=== PATIENT | male | born 1965 | race Caucasian/White ===

== ENCOUNTER 2024-04-09 10:15 | Outpatient (CLI) | payer OTHER, SELFPAY ==
--- NOTE | 2024-04-09 11:36 | W.ANESCHARGE ---
Anesthesia Charges Start Date/Time Anesthesia Start Date: 04/09/24 Anesthesia Start Time: 11:08 Stop Date/Time Anesthesia Stop Date: 04/09/24 Anesthesia Stop Time: 11:35 Coding CPT Codes CPT Codes: ERASMO [place] INTST NDSC NOS - 62142 ([id number]) P2 - PATIENT W/MILD SYST DISEASE, QX - TRAVELING SALES EXECUTIVE SVC W/ MD MED DIRECTION, QK - HYDRODYNAMICS PROFESSOR 2-4 CNCRNT ANEValencia PROC
--- NOTE | 2024-04-09 11:56 | W.ANESCHARGE ---
Anesthesia Charges Start Date/Time Anesthesia Start Date: 04/09/24 Anesthesia Start Time: 11:08 Stop Date/Time Anesthesia Stop Date: 04/09/24 Anesthesia Stop Time: 11:35 Coding CPT Codes CPT Codes: ERASMO LWR INTST NDSC NOS - 40269 ([id number]) P2 - PATIENT W/MILD SYST DISEASE, QK - VAN DRIVER HELPER 2-4 CNCRNT ANES PROC, QX - OFFICE EQUIPMENT TECHNICIAN SVC W/ MD MED DIRECTION
== END 2024-04-09 10:16 | disposition home or self-care (01) ==
LOC: OP CLINIC 10:15
PROVIDERS: PCP Internal Medicine; Visit Provider Surgery
DX: Z12.11 Encounter for screening for malignant neoplasm of colon (principal); D12.7 Benign neoplasm of rectosigmoid junction; Z86.0100 Personal history of colon polyps, unspecified
CPT/HCPCS: 00811; 45385; 88305; J2704

== ENCOUNTER 2024-04-23 21:05 | Emergency (ER) | payer OTHER, SELFPAY ==
[2024-04-23] VITALS (8 sets, daily range): BP systolic 135–142; BP diastolic 82–103; PULSE 67–79; RESP 12–20; TEMP 36.8; O2SAT 92–99; BMI 33.4
--- OUTSIDE RECORDS SUMMARY | 2024-04-23 21:07 | XMS_ITS | Clinical Summary ---
Author Organization [employer] [facility] Address [address] [place] [address] Care Team Providers Care Bank Vault Custodian Name Role Phone Nessa Guerra DO Primary Care Provider [phone] Allergies Active Allergy Reactions Criticality Noted Date Comments Sulfa (Sulfonamide Antibiotics) Rash 04/07 Medications lansoprazole (PREVACID) 15 mg capsule Take 1 Capsule (15 mg) by mouth once daily before a meal. Taking as needed 0 04/28/2022 Active Active Problems No known active problems Encounters Date Type Department Care Team Description 04/09/2024 Orders Only [facility] Scanner 1 scan: (1-Ord) [facility] 04/09/2024 Orders Only [facility] Scanner 1 scan: (1-Ord) [facility] 04/09/2024 Orders Only [facility] Scanner 1 scan: (1-Ord) [place] from Last 3 Months Immunizations Immunization Administration Dates Next Due Influenza, IIV4 10/21/2021, 9,11/28/2017,11/22/19 17 Influenza, IIV4 (=>6mos) MDV 11/18/2019 Influenza,CCIIV4 PRESERV FREE 01/14/2023 Tdap 09/22/2017 Zoster (Shingrix-RZV, recombinant) 04/19/2023, Family History Medical History Relation Name Comments Hypertension Mother Relation Name Status Comments Mother Alive Social History Tobacco Use Types Packs/Day Years Used Date Smoking Tobacco: Never Passive Smoke Exposure: Past Smokeless Tobacco: Never Tobacco Cessation:Counseling Given: Yes Alcohol Use Standard Drinks/Week Comments Yes 7 (1 standard drink = 0.6 oz pur e alcohol) 1 per day PHQ-2 Answer Date Recorded PHQ-2 TOTAL SCORE 0 07/14/2023 Social Connections Answer Date Recorded Do you often feel lonely or isolated from those around you? 0 07/06/2023 Alcohol Use Answer Date Recorded How often do you have a drink containing alcohol ? 4 04/28/2022 How many drinks containing a lcohol do you have on a typical day when you are drinking? 0 04/28/2022 How often do you have five or more drinks on one occasion? 0 04/28/2022 Financial Resource Strain Answer Date R ecorded Difficulty of Paying Living Expenses 3 07/06/2023 Difficulty of Paying Living Expenses Not on file 07/06/2023 Food Insecurity Answer Date Recorded Do you worry your food will run out before you are able to buy more? 1 07/06/2023 Transportation Needs Answer Date Record ed Does lack of transportation keep you from medica l appointments? 1 07/06/2023 Does lack of transportation keep you from work, meetings or getting things that you need? 1 07/06/2023 Housing Stability Answer Date Recorded What is your housing situation today? 1 07/06/2023 Utilities Answer Date Recorded Do you have trouble paying f or utilities (for example, heat, electricity, water, phone)? 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 MAT ROLLER Gender Identity Not on file Sexual Orientation Not on file Obstetrics History Last Filed Vital Signs Vital Sign Reading Time Taken Comments Blood Pressure 123/81 07/14/2023 8:08 AM CDT Pulse 69 07/14/2023 8:08 AM CDT Temperature - - Respiratory Rate - - Oxygen Saturation 99% 07/14/2023 8:08 AM CDT Inhaled Oxygen Concentration - - Weight 112 kg (246 lb 14.4 oz) 07/14/2023 8:08 A M CDT Height 186.9 cm (6' 1.58) 07/14/2023 8:08 AM CD T Body Mass Index 32.06 07/14/2023 8:08 AM CDT Plan of Treatment Upcoming Encounters Date Type Department Care Team (Late st Contact Info) Description 05/02/2024 9:45 AM CDT Office Visit [facility] [address] [place] [address] TremayneNessa navarrete, [address] [facility] [address] Health Maintenance Due Date Last Done Comments Pneumococcal series for age 50+ (1 of 1 - PCV) 2016 COVID-19 vaccine series ( season) 2023 01/14/2023, 10/21/2021, 06/11/2021, Additional history exists Influenza Vaccine (#1) 2023 , 10/21/2021, 11/18/2019, Additional history exists BMI (ht and wt on same day) for age 18+ 07/13/2024 07/14/2023, 04/28/2022 Depression screening for age 12+ 07/13/2024 07/14/19 24, 04/28/2022 Tetanus booster 09/23/2027 09/22/2017 Lipids for age 45-75 07/13/2028 07/14/2023, 04/29/19 Colonoscopy through age 75 04/09/203404/09, 04/09/2024, 04/09/2024, Additional history exists Tdap Completed 09/22/2017 HIV for age 15-65 Completed 04/28/2022 Hepatitis C screening for ag e 18-79 Completed 04/28/2022 Zoster (shingles) series for age 50+ Completed 04/19/2023, 01/14/2023 Procedures Procedure Name Priority Date/Time Associated Diagnosis Comments SCAN-COLONOSCOPY 04/09/2024 12:0 0 AM MAT ROLLER SCAN-COLONOSCOPY 04/09/2024 12:0 0 AM MAT ROLLER SCAN-COLONOSCOPY 04/09/2024 12:0 0 AM MAT ROLLER LIPID PANEL W REFLEX MEASURED LDL Routine 07/14/2023 9:12 AM CDT Lipid screening LC HIV-1/O/2, 4TH GENERATION Routine 04/28/2022 9:05 AM CDT Screening for HIV (human immunodeficiency virus) LC HCV ANTIBODY RFX TO QUANT PCR Routine 04/28/2022 9:05 AM CDT Need for hepatitis C screening test from Last 3 Months or Most Recently Relevant to Health Maintenance Results * SCAN-COLONOSCOPY (04/09/2024 12:00 AM MAT ROLLER) us Scanner OTHER Final Result * SCAN-COLONOSCOPY (04/09/2024 12:00 AM MAT ROLLER) us Scanner OTHER Final Result * SCAN-COLONOSCOPY (04/09/2024 12:00 AM MAT ROLLER) us Scanner OTHER Final Result * (ABNORMAL) LIPID PANEL W REFLEX MEASURED LDL (07/14/2023 9:12 AM CDT) CHOLESTEROL,TOTAL 236(H) 100 - 199 mg/dL 07/14/2023 7:34 PM CDT [facility] Comment: Cholesterol, Total Reference Ranges Desirable <200 mg/dL Borderline 200-239 mg/dL High >=240 mg/dL TRIGLYCERIDES 188(H) <150 mg/dL 07/14/2023 7:34 PM CDT [facility] HDL CHOLESTEROL 35(L) >40 mg/dL 7:34 PM CDT [facility] NON-HDL CHOLESTEROL 201(H) <145 mg/dl 07/14/2023 7:34 PM CDT [facility] CHOL/HDL RATIO 6.74(H) <4.50 07/14/2023 7:34 PM CDT [facility] LDL CHOLESTEROL 163(H) <=130 mg/dL 07/14/2023 7:34 PM CDT [facility] VLDL CHOLESTEROL 38(H) <=30 mg/dL 07/14/2023 7:34 PM CDT [facility] PROVIDER ORDERED STATUS RANDOM 07/14/2023 7:34 PM CDT [facility] Blood BLOOD SPECIMEN / Unknown Venipuncture / Unknown 07/14/2023 9:12 AM CDT 07/14/2023 9:13 AM CDT [facility] Final Result [facility] [address] [place] [address], [place] * LC HCV ANTIBODY RFX TO QUANT PCR (04/28/2022 9:05 AM CDT) HCV Ab Non Reactive Non Reactive 04/30/2022 12:07 PM CDT [facility] ([facility]) Blood BLOOD SPECIMEN / Unknown Venipuncture / Unknown 04/28/2022 9:05 AM CDT 04/28/2022 9:09 AM CDT Narrative [facility] ([facility]) - 04/30/2022 12:07 PM CDT Performed at: [address] [place] [id number] Crew Boat Operator: Cornelius Zapata MD, Phone: [phone] [facility] LABORATORY Final Result Performing Organization Address City/[facility]/ZIP Co de Phone Number [facility] ([facility]) [address] [place] [id number], * LC HIV-1/O/2, 4TH GENERATION (04/28/2022 9:05 AM CDT) HIV Scr 4th Gen Non Reactive Non Reactive 04/30/2022 9:09 AM CDT [facility] ([facility]) Comment: HIV Negative HIV-1/HIV-2 antibodies and HIV-1 p24 antigen were NOT detected. There is no laboratory evidence of HIV infection. Blood BLOOD SPECIMEN / Unknown Venipuncture / Unknown 04/28/2022 9:05 AM CDT 04/28/2022 9:09 AM CDT Narrative [facility] ([facility]) - 04/30/2022 9:09 AM CDT Performed at: [address] [id number] Crew Boat Operator: Cornelius Zapata MD, Phone: [phone] us Nessa Guerra DO LABORATORY Final Result [facility] ([facility]) [address] [place] [address], from Last 3 Months or Most Recently Relevant to Health Maintenance Insurance [facility] [place] [address] Care Teams Bank Vault Custodian Relationship Specialty Start Date End Date Nessa Guerra DO [address] [place] [address] PCP - General Family Practice 04/28/22
--- OUTSIDE RECORDS SUMMARY | 2024-04-23 21:07 | XMS_ITS | Patient Health Record ---
Author Organization [facility] Address [address] [place] [address] Care Team Providers Care Natural Resources Instructor Name Role Phone Sallie Stevan GRUBER Primary Care Provider Shannan Lozano Unavailable [phone] Allergies Allergen (clinical drug ingredient) Drug/Non Drug Allergy documented on EMR Reaction Allergy Type Onset Date Status Sulfa itchy rash Drug Allergy Active Reason For Referral No Information Immunizations Vaccine Route Administration Date Status Comme nts Influenza, quad[place], [address] split virus IM Intramuscular 01/29/2016 Administered Plan Of Treatment No Information Insurance Providers Payer Name Payer Address Payer Phone Subscriber Number Group Number Insured Name Patient Relationship to Insured Coverage Start Date Coverage End Date [facility] [address] [address] [place] [address] [id number] Denise Bates Spouse - patient is the spouse of the insured Medical (General) History Medical History History ICD Code hemorrhoids GERD Surgical History Surgery Date(Month/Year) Colonoscopy - [facility], Dr Masterson; 5 y repe at 11/2013 Hospitalization History Reason Date(Month/Year) croup as child
--- NOTE | 2024-04-23 21:25 | ED.CHESTPAIN ---
HPI - Chest Pain General Time Seen by Provider: 21:26 Date Seen: 04/23/24 Chief Complaint: Chest Pain Stated Complaint: Chest pain, blood pressure 153/98 Time Seen by Provider: 04/23/24 21:25 Source: patient, family and RN notes reviewed Mode of arrival: ambulatory Limitations: no limitations History of Present Illness HPI narrative: Vince is a very pleasant 58-year-old male with history of borderline hypertension, unknown lipids, nonsmoker who comes to the emergency room with his for evaluation of chest pain. Patient notes the onset of some left anterior chest pain yesterday after workup. He and his had done a 26 mile bike ride 3 days ago with no problems at all. After having experience the chest discomfort grade did take an aspirin. He notes that the pain has been coming and going over the last 2 days. It does radiate into his left hand but not into his back. He is not short of breath and denies worsening symptoms with activity today. He does note that he feels ?off?. No nausea vomiting. He notes that he has been burping a lot and attributes all of his symptoms to reflux. He did take a PPI today and some Tums. Currently he has pain that is coming and going rating it a 1 to 2/10. To did have viral illness with the rest of the family recently but no lingering affects. He had tested negative for COVID at that time. No unusual lower extremity edema calf tenderness or history of DVT. Related Data Home Medications ?Medication ?Instructions ?Recorded ?Confirmed lansoprazole 30 mg capsule,delayed 30 mg PO QDAY PRN 12/12/21 04/23/24 release (Prevacid) Allergies Allergy/AdvReac Type Severity Reaction Status Date / Time Sulfa (Sulfonamide Allergy Intermediate Hives Verified 04/23/24 21:15 Antibiotics) Review of Systems Status of ROS Reports: 10 or more systems reviewed and unremarkable except as noted in History and below Const Denies: fever, chills or fatigue Eyes Denies: change in vision ENMT Denies: throat pain, neck pain, throat swelling or nasal congestion Cardio Reports: chest pain; Denies: palpitations, edema, swelling of feet/ankles, lightheadedness or shortness of breath with exertion Resp Denies: shortness of breath or cough GI Denies: abdominal pain, nausea or vomiting Musculo Denies: back pain, neck pain or extremity swelling Endo Denies: fatigue Allergy/Immuno Denies: throat swelling PFSH PFS Medical History COVID-19 ?U07.1 - COVID-19 (ICD-10) Social History Smoking Status: Never smoker Second hand tobacco smoke exposure: No How often do you have a drink containing alcohol: never AUDIT-C Alcohol total score: 0 Non-prescribed substance use: denies use Exam Narrative Exam Narrative: Vince is alert and oriented. Nontoxic in appearance. His is present and is a physician. She is very loving and supportive. EOM is full. Face symmetrical. Heart with regular rate and rhythm without murmur or rub lungs are clear bilaterally. Abdomen is soft nontender. No pain in the right upper quadrant no pulsating mass. Lower extremities without calf tenderness no unusual swelling. Const Vital Signs, click to edit/add: Vital Signs - 24 hr 04/23/24 21:13 04/23/24 21:29 04/23/24 21:36 Temperature 98.3 F 98.3 F Pulse Rate 79 Pulse Rate [Right Pulse Oximeter] 68 Respiratory Rate 18 18 Blood Pressure 139/93 H Blood Pressure [Left Upper Arm] 142/103 H Pulse Oximetry 99 97 99 Oxygen Delivery Method Room Air 04/23/24 21:43 04/23/24 22:02 04/23/24 22:22 Temperature Pulse Rate 79 72 74 Pulse Rate [Right Pulse Oximeter] Respiratory Rate 16 20 12 Blood Pressure 141/82 H 139/90 H 139/87 Blood Pressure [Left Upper Arm] Pulse Oximetry 97 95 92 Oxygen Delivery Method 04/23/24 23:02 04/23/24 23:32 04/24/24 00:02 Temperature Pulse Rate 67 71 66 Pulse Rate [Right Pulse Oximeter] Respiratory Rate 15 18 18 Blood Pressure 135/90 H 135/93 H 131/90 H Blood Pressure [Left Upper Arm] Pulse Oximetry 94 94 95 Oxygen Delivery Method 04/24/24 00:16 04/24/24 00:17 Temperature 98.3 F 98.3 F Pulse Rate Pulse Rate [Right Pulse Oximeter] 71 71 Respiratory Rate 18 18 Blood Pressure Blood Pressure [Left Upper Arm] 138/90 H 138/90 H Pulse Oximetry 97 Oxygen Delivery Method Room Air Documenting provider has reviewed patient's vital signs: yes Course Course ED Course: Differential diagnosis includes but is not limited to biliary colic, reflux, angina, acute coronary syndrome, pneumonia, PE. Given patient's normal pulse and reassuring oximetry I do not think we are dealing with pneumonia or PE. At this time will give aspirin 324 mg p.o., do a cardiac rule out. Will also obtain chest x-ray and EKG as well as troponin, CBC, comprehensive panel. Reevaluation(s) Reevaluation #1: Patient noted to have reassuring EKG as well as negative troponin. Will do a trial of Maalox to see if this changes how he feels. Plan on recheck of troponin and EKG in approximately 2 hours Reevaluation #2: Patient notes that he feels much better than when he came in. States that earlier his blood pressure was 154/98 any felt like he was a stuffed sausage or that he felt edematous even though he was not. States that feeling has now dissipated. Notes that he actually feels better when he is doing activity. Again states that he feels that this is his reflux and that he just needs time for the lansoprazole to kick in which he started today. Vital Signs Vital signs: Initial Vital Signs Temperature 98.3 F 04/23/24 21:13 Temperature Source Temporal Artery Scan 04/23/24 21:13 Pulse Rate 68 04/23/24 21:13 Pulse Rhythm Regular 04/23/24 21:13 Pulse Strength 3+ Normal 04/23/24 21:13 Respiratory Rate 18 04/23/24 21:13 Respiratory Effort Normal, Spontaneous, Non-Labored, Shortness of Breath at Re 04/23/24 21:13 Respiratory Depth Normal 04/23/24 21:13 Blood Pressure 142/103 H 04/23/24 21:13 Blood Pressure Mean 116 H 04/23/24 21:13 Blood Pressure Position Sitting 04/23/24 21:13 Pulse Oximetry 99 04/23/24 21:13 Oxygen Delivery Method Room Air 04/23/24 21:13 Vital Signs Temperature 98.3 F 04/23/24 21:13 Pulse Rate 68 04/23/24 21:13 Respiratory Rate 18 04/23/24 21:13 Blood Pressure 142/103 H 04/23/24 21:13 Pulse Oximetry 99 04/23/24 21:13 Oxygen Delivery Method Room Air 04/23/24 21:13 Temperature 98.3 F 04/24/24 00:17 Pulse Rate 71 04/24/24 00:17 Respiratory Rate 18 04/24/24 00:17 Blood Pressure 138/90 H 04/24/24 00:17 Pulse Oximetry 97 04/24/24 00:16 Oxygen Delivery Method Room Air 04/24/24 00:16 Medications Administered Medications: Discontinued Medications Generic Name Dose Route Start Last Admin Trade Name Ibeth PRN Reason Stop Dose Admin Aspirin 324 mg 04/23/24 21:34 04/23/24 21:42 Aspirin 81 Mg Tab.Chew PO 04/23/24 21:35 324 mg ONCE ONE Administration Lidocaine/Aluminum/Magnesium/Simeth 15 ml 04/23/24 22:22 04/23/24 22:33 Mag Hydrox/Aluminum Hyd/Simeth 30 Ml Oral.Susp PO 04/23/24 22:23 15 ml ONCE ONE Administration MDM - Chest Pain MDM Narrative Medical decision making narrative: 1. Atypical chest pain-patient has a EKGs with normal sinus rhythm very reassuring as well as 2- troponins. I did explain while this rules out acute coronary syndrome/SC it does not necessarily rule out the fact that this discomfort could be coming from a cardiac origin. I do recommend a stress test for this gentleman. Will leave his name for our staff and have him follow-up with a stress echo. Until that time will have him take aspirin daily. He did receive 3 and 24 mg of aspirin in the ED tonight. Would also have him limit any activity until he undergoes the stress echo. Vince should continue the lansoprazole for 2 weeks. Discussed with him that he may need to supplement with magnesium if he is on the PPI longer than that. 2. Disposition-patient does feel comfortable going home at this time. I think it is safe for him to do so given the appearance of his EKGs and negative troponins. Again recommend follow-up with his primary MD, scheduling of a stress test as well as returning for any worsening or new onset symptoms. Medical Records Data Attestation: I reviewed the patient's medical records. Lab Data Attestation: I reviewed the patient's lab results. Labs: Lab Results 04/23/24 04/23/24 Range/Units 21:30 23:10 WBC 7.75 (4.50-11.00) K/uL RBC 4.64 (4.30-5.90) m/uL Hgb 14.6 (13.5-17.5) gm/dL Hct 43.6 (37.0-53.0) % MCV 94 (80-100) fL MCH 32 (26-34) pg MCHC 34 (32-36) gm/dL RDW Coeff of Jonah 12.0 (11.5-15.5) % Plt Count 287 (140-440) K/uL Neut % (Auto) 42.0 (42.0-72.0) % Lymph % (Auto) 44.1 H (20-44) % [place] % (Auto) 10.1 (0.0-11.0) % Eos % (Auto) 2.8 (0.0-7.0) % Baso % (Auto) 0.9 (0.0-3.0) % Neut # (Auto) 3.25 (1.7-7.0) K/uL Lymph # (Auto) 3.40 H (0.90-2.90) K/uL [place] # (Auto) 0.80 (0.00-0.90) K/UL Eos # (Auto) 0.22 (0.00-0.50) K/uL Baso # (Auto) 0.07 (0.00-0.30) K/uL Abs Immat Gran (auto) 0.01 (0.00-0.30) K/uL Imm/Tot Granulo (auto) 0.1 % Sodium 141 (135-149) mmol/L Potassium 3.9 (3.6-5.1) mmol/L Chloride 103 (96-114) mmol/L Carbon Dioxide 27 (20-32) mmol/L Anion Gap 11 (7-15) mEq/L BUN 22 (7-30) mg/dL Creatinine 1.0 (0.5-1.5) mg/dL Estimated Creat Clear 94.76 Estimated GFR 88 ml/min Glucose 97 (60-115) mg/dL Calcium 9.3 (8.4-10.6) mg/dL Total Bilirubin 0.8 (0.1-1.5) mg/dL AST 26 (12-35) U/L ALT 32 (4-50) U/L Alkaline Phosphatase 76 (40-150) U/L Total Protein 7.3 (6.0-8.3) g/dL Albumin 4.6 (3.3-5.0) g/dL Lipase 74 (23-300) U/L POC Troponin I 0.01 0.00 L (0.01-0.04) ng/ml Imaging Data Chest x-ray: Attestation: I have reviewed the pertinent imaging results. My impression: I do not note any acute lung markings Radiologist's impression: one Findings/Impression: No acute cardiopulmonary process detected. ECG Data Attestation: I personally reviewed and interpreted this ECG as follows: ECG interpretation date: 04/24/24 Interpretation: EKG 1. Shows sinus rhythm at a rate of 78. There are no acute ST changes noted. I note a normal QT and MN interval. EKG 2. Shows sinus rhythm at a rate of 67. No acute ST or T-wave changes noted. QT and MN intervals remain normal. Discharge Plan Discharge Clinical Impression: Atypical chest pain, Hx of gastroesophageal reflux (GERD) Patient Disposition: Home, Self-Care Condition: Improved Additional Instructions: Recommend continuing current lansoprazole dosing daily for 2 weeks. Recommend continuing aspirin daily until your stress test. I will leave your name with our staff to call you and schedule a stress echo. Seek medical attention/return for any worsening symptoms onset of new symptoms and as needed. Prescriptions: No Action lansoprazole [Prevacid] 30 mg capsule,delayed release(DR/EC) 30 mg PO QDAY PRN Follow Up/Referrals: Ethan Ardon MD [Staff Physician] - Stand Alone Forms: [employer] Info Instructions
--- NOTE | 2024-04-23 21:33 | CRLHL7_ITS ---
For Patients: As a result of the Cures Act, medical imaging exams and procedure reports are released immediately into your electronic medical record. You may view this report before your referring provider. If you have questions, please contact your health care provider. Indication: Left anterior chest pain Technique: Single view of the chest Comparison: None Findings/Impression: No acute cardiopulmonary process detected. Dictated by Dioni Raya MD @ 04/23/2024 10:08:59 PM (Electronically Signed)
[2024-04-23 21:42] LABS: Basophils Absolute Auto 0.07 K/uL (0.00-0.30); Basophils Percent Auto 0.9 % (0.0-3.0); Eosinophils Absolute Auto 0.22 K/uL (0.00-0.50); Eosinophils Percent Auto 2.8 % (0.0-7.0); Hematocrit 43.6 % (37.0-53.0); Hemoglobin* 14.6 gm/dL (13.5-17.5); Immature Granulocytes Abs Auto 0.01 K/uL (0.00-0.30); Immature Granulocytes Pct Auto 0.1 %; Lymphocytes Percent Auto 44.1 % (20-44); Mean Corpuscular HGB Conc 34 gm/dL (32-36); Mean Corpuscular Hemoglobin 32 pg (26-34); Mean Corpuscular Volume 94 fL (80-100); Monocytes Percent Auto 10.1 % (0.0-11.0); Neutrophils Absolute Auto 3.25 K/uL (1.7-7.0); Platelet Count* 287 K/uL (140-440); Red Blood Count 4.64 m/uL (4.30-5.90); White Blood Count* 7.75 K/uL (4.50-11.00)
[2024-04-23] MEDS: ASPIRIN 81 MG TAB.CHEW 324 MG PO (21:42)
--- OUTSIDE RECORDS SUMMARY | 2024-04-23 21:43 | XMS_ITS | Clinical Summary ---
Author Organization [facility] Address [address] [place] [id number] Care Team Providers Care Sales Center Associate Name Role Phone Nessa Guerra DO Primary Care Provider [phone] Allergies Active Allergy Reactions Criticality Noted Date Comments Sulfa (Sulfonamide Antibiotics) Rash 04/07 Medications lansoprazole (PREVACID) 15 mg capsule Take 1 Capsule (15 mg) by mouth once daily before a meal. Taking as needed 0 04/28/2022 Active Active Problems No known active problems Encounters Date Type Department Care Team Description 04/09/2024 Orders Only [facility] Scanner 1 scan: (1-Ord) [facility] 04/09/2024 Orders Only [facility] Scanner 1 scan: (1-Ord) [facility] 04/09/2024 Orders Only [facility] Scanner 1 scan: (1-Ord) [facility] from Last 3 Months Immunizations Immunization Administration [...] on file Legal Sex Male 7:22 PM [employer] Gender Identity Not on file Sexual Orientation [...] Description 05/02/2024 9:45 AM CDT Office Visit [facility] [address] [place] [address] TremayneNessa navarrete, [address] [facility] [address] Health Maintenance Due Date Last Done Comments [...] Diagnosis Comments SCAN-COLONOSCOPY 04/09/2024 12:0 0 AM WATCH [employer] SCAN-COLONOSCOPY 04/09/2024 12:0 0 AM WATCH BAND AS[employer]ER SCAN-COLONOSCOPY 04/09/2024 12:0 0 AM W[employer]AND AS[employer]ER LIPID PANEL W REFLEX MEASURED LDL Routine 07/14/2023 9:12 AM CDT Lipid screening LC HIV-1/O/2, 4TH GENERATION Routine 04/28/2022 9:05 AM CDT Screening for HIV (human immunodeficiency virus) LC HCV ANTIBODY RFX TO QUANT PCR Routine 04/28/2022 9:05 AM CDT Need for hepatitis C screening test from Last 3 Months or Most Recently Relevant to Health Maintenance Results * SCAN-COLONOSCOPY (04/09/2024 12:00 AM WATCH BAND ASSEMBLER) us Scanner OTHER Final Result * SCAN-COLONOSCOPY (04/09/2024 12:00 AM WATCH BAND ASSEMBLER) us Scanner OTHER Final Result * SCAN-COLONOSCOPY (04/09/2024 12:00 AM WATCH BAND ASSEMBLER) us Scanner OTHER Final Result * (ABNORMAL) LIPID PANEL W REFLEX MEASURED LDL (07/14/2023 9:12 AM CDT) CHOLESTEROL,TOTAL 236(H) 100 - 199 mg/dL 07/14/2023 7:34 PM CDT [facility] Comment: Cholesterol, Total Reference Ranges Desirable <200 mg/dL Borderline 200-239 mg/dL High >=240 mg/dL TRIGLYCERIDES 188(H) <150 mg/dL 07/14/2023 7:34 PM CDT [facility] HDL CHOLESTEROL 35(L) >40 mg/dL 7:34 PM CDT [facility] NON-HDL CHOLESTEROL 201(H) <145 mg/dl 07/14/2023 7:34 PM CDT [facility] CHOL/HDL RATIO 6.74(H) <4.50 07/14/2023 7:34 PM CDT [facility] LDL CHOLESTEROL 163(H) <=130 mg/dL 07/14/2023 7:34 PM CDT [facility] VLDL CHOLESTEROL 38(H) <=30 mg/dL 07/14/2023 7:34 PM CDT [facility] PROVIDER ORDERED STATUS RANDOM 07/14/2023 7:34 PM CDT [facility] Blood BLOOD SPECIMEN / Unknown Venipuncture / Unknown 07/14/2023 9:12 AM CDT 07/14/2023 9:13 AM [facility] Final [facility] [address] [place] [address], [place] * LC HCV ANTIBODY RFX TO QUANT PCR (04/28/2022 9:05 AM CDT) HCV Ab Non Reactive Non Reactive 04/30/2022 12:[address] [facility] ([facility]) Blood BLOOD SPECIMEN / Unknown Venipuncture / Unknown 04/28/2022 9:05 AM CDT 04/28/2022 9:09 AM CDT Narrative [facility] ([facility]) - 04/30/2022 12:07 PM CDT Performed at: [address] [place] [id number] Process Eng: Cornelius Zapata MD, Phone: [phone] [facility] LABORATORY Final Result Performing Organization Address City/[facility]/ZIP Co de Phone Number [facility] ([facility]) [address] [place] [id number], * LC HIV-1/O/2, 4TH GENERATION (04/28/2022 9:05 AM CDT) HIV Scr 4th Gen Non Reactive Non Reactive 04/30/2022 9:09 AM CDT [facility] ([facility] Comment: HIV Negative HIV-1/HIV-2 antibodies and HIV-1 p24 antigen were NOT detected. There is no laboratory evidence of HIV infection. Blood BLOOD SPECIMEN / Unknown Venipuncture / Unknown 04/28/2022 9:05 AM CDT 04/28/2022 9:09 AM CDT Narrative [facility] ([facility]) - 04/30/2022 9:09 AM CDT Performed at: [address] [id number] Process Eng: Cornelius Zapata MD, Phone: [phone] us Nessa Guerra DO LABORATORY Final Result [facility] [address] [place] [address], from Last 3 Months or Most Recently Relevant to Health Maintenance Insurance [facility] [employer] Care Teams Sales Center Associate Relationship Specialty Start Date End Date Nessa Guerra DO [address] [place] [address] PCP - General Family Practice 04/28/22
[2024-04-23 21:44] LABS: Troponin, Point-of-Care* 0.01 ng/ml (0.01-0.04)
[2024-04-23 21:55] LABS: Albumin* 4.6 g/dL (3.3-5.0); Chloride* 103 mmol/L (96-114); Potassium* 3.9 mmol/L (3.6-5.1); Sodium* 141 mmol/L (135-149)
[2024-04-23 21:58] LABS: Alkaline Phosphatase* 76 U/L (40-150); Anion Gap 11 mEq/L (7-15); Aspartate Amino Transferase* 26 U/L (12-35); Bilirubin Total* 0.8 mg/dL (0.1-1.5); Blood Urea Nitrogen* 22 mg/dL (7-30); Calcium* 9.3 mg/dL (8.4-10.6); Carbon Dioxide* 27 mmol/L (20-32); Est. Creatinine Clearance* 94.76; Estimated Glomerular Filt Rate 88 ml/min; Glucose* 97 mg/dL (60-115); Total Protein* 7.3 g/dL (6.0-8.3)
[2024-04-23 21:59] LABS: Alanine Aminotransferase* 32 U/L (4-50); Lipase* 74 U/L (23-300); Slide Review Reflex No
[2024-04-23] MEDS: MAG HYDROX/ALUMINUM HYD/SIMETH 30 ML ORAL.SUSP 15 ML PO (22:33)
[2024-04-24 00:02] VITALS: BP 131/90; PULSE 66; RESP 18; O2SAT 95
[2024-04-24 00:16] VITALS: BP 138/90; PULSE 71; RESP 18; TEMP 36.8; O2SAT 97
[2024-04-24 00:17] VITALS: BP 138/90; PULSE 71; RESP 18; TEMP 36.8
== END 2024-04-24 00:18 | disposition home or self-care (01) ==
PROVIDERS: Emergency Provider Family Medicine; PCP Student in an Organized Health Care Education/Training Program
DX: R07.9 Chest pain, unspecified (principal)
CPT/HCPCS: 36415; 71045; 80053; 83690; 84484; 85025; 93005; 94761; 99284; 99285; A9270

== ENCOUNTER 2024-05-07 12:38 | Outpatient (CLI) | payer OTHER, SELFPAY ==
[2024-05-07 13:40] VITALS: BP 160/80; PULSE 91; RESP 18
[2024-05-07] MEDS: PERFLUTREN LIPID MICROSPHERES 2 ML VIAL IVP (13:48)
--- NOTE | 2024-05-07 14:08 | W.PM.STED ---
Stress Test Note Date Date of test: 05/07/24 Providers Primary care provider: ANTONI MCKINNEY Stress test physician: Roverto Guillen Stress Test Note Stress test ordered: Stress Echo Indication for test: Chest pain Stress test medicine: Definity Results discussion: This very nice gentleman presents here for evaluation of chest pain, after discussion the risks benefits and side effects he would like to proceed. Pretest cardiac stress test history form is reviewed. Pretest EKG shows normal sinus rhythm. Ventricular rate is 68, blood pressure is 144/88. No ST wave changes are noted. Standard stress echo protocol is done, for 10 minutes, he achieved a metabolic equivalent of 11.5 Mets with a maximum heart rate of 163 which is 117% of the maximum, during this test he did not have any significant symptoms, suggestive of ischemia, review of the tracing did not show any appreciable ST wave changes suggestive of ischemia, there was no dysrhythmias. Impression: Negative electrographic portion both subjectively and objectively. Follow up suggested: Await echo images these will be read by Cardiology, clinical correlation with these will be needed, patient left this testing facility in good condition.
== END 2024-05-07 13:55 | disposition home or self-care (01) ==
LOC: STRESS 12:38
PROVIDERS: PCP Student in an Organized Health Care Education/Training Program; Visit Provider Family Medicine
DX: R07.9 Chest pain, unspecified (principal)
CPT/HCPCS: 93016; 93325; 93351; Q9957